=== PATIENT | female | born 1980 | race Caucasian/White ===

== ENCOUNTER 2017-06-06 12:58 | Outpatient (CLI) | payer OTHER ==
--- NOTE | 2017-06-06 15:55 | CT ---
CT SINUSES: 06/06/17 Multiple axial tomograms obtained through the sinuses. Multiplanar reconstruction. Evidence of prior paranasal sinus mucosal disease seen on MRI of brain. Comparison made to MRI of br ain from 10/09/15. FINDINGS: there is a mucous retention cyst in the floor of the left maxillary antrum measuring 1.5 cm. Small m ucous retention cyst seen along the medial wall of the left maxillary sinus measures 1.0 cm. Small m ucous retention cyst in the floor of the right maxillary antrum measures 1.0 cm. The frontal sinuses are clear. Ethmoids are well aerated and clear. The maxillary sinuses are otherw ise well aerated. The infundibula are patent although slightly elongated. Sphenoid air cells are lonny ar. No significant septal deviation. IMPRESSION: Paranasal sinus mucosal disease seen with two mucous retention cysts in the left maxillary sinus and one in the floor of the right maxillary antrum. POS: [facility]
== END 2017-06-06 12:59 | disposition home or self-care (01) ==
LOC: CT 12:58
PROVIDERS: ATTEND Family Medicine
DX: R93.0 Abnormal findings on diagnostic imaging of skull and head, not elsewhere classified (principal)

== ENCOUNTER 2019-02-15 16:44 | Outpatient (CLI) | payer OTHER ==
--- NOTE | 2019-02-15 17:06 | RAD ---
THREE VIEWS LEFT SHOULDER: Comparison: None. History: Left shoulder pain. FINDINGS: Three views of the left shoulder shows no evidence of acute fracture or dislocation. No degenerative changes are seen. No soft tissue swelling is present. IMPRESSION: Unremarkable exam. POS: [facility]
== END 2019-02-15 16:45 | disposition home or self-care (01) ==
LOC: SCSRAD 16:44
PROVIDERS: ATTEND Physical Medicine & Rehabilitation
DX: M25.512 Pain in left shoulder (principal)

== ENCOUNTER 2019-05-26 11:48 | Outpatient (CLI) | payer OTHER ==
--- NOTE | 2019-05-26 12:51 | RAD ---
LUMBAR SPINE THREE VIEWS: 05/26/2019 HISTORY: Back pain. FINDINGS: The lumbar pedicles appear intact on frontal imaging. The lateral exam demonstrates normal vertebral body height and alignment. No acute osseous abnormality. IMPRESSION: No acute findings. POS: [facility]
== END 2019-05-26 11:49 | disposition home or self-care (01) ==
LOC: SCSRAD 11:48
PROVIDERS: ATTEND Internal Medicine Rheumatology
DX: M54.9 Dorsalgia, unspecified (principal)
CPT/HCPCS: 72100

== ENCOUNTER 2023-04-24 13:06 | Outpatient (CLI) | payer BC | END 2023-04-24 13:07 | disposition home or self-care (01) | LOC: SCSRAD 13:06 | PROVIDERS: ATTEND Internal Medicine Rheumatology | DX: M45.0 Ankylosing spondylitis of multiple sites in spine (principal); M47.816 Spondylosis without myelopathy or radiculopathy, lumbar region; R93.5 Abnormal findings on diagnostic imaging of other abdominal regions, including retroperitoneum | CPT/HCPCS: 72100 ==